=== PATIENT | male | born 1940 | race Caucasian/White ===

== ENCOUNTER 2018-05-06 21:58 | Inpatient (IN) | payer OTHER ==
[~2018-05-06] VITALS: Ht 182.9 cm; Wt 80.0 kg
[2018-05-06 22:54] LABS: Hematocrit 42.4 % (41.0-53.0); Mean Corpuscular Hemoglobin 32.2 pg (28.0-32.0); Mean Corpuscular Hgb Conc. 33.1 g/dL (32.0-36.0); Mean Corpuscular Volume 97.2 fL (80.0-100.0); Platelet Count (auto) 163 10^3/uL (140-450); Red Blood Cells 4.36 10^6/uL (4.5-5.90); Red Cell Distribution Width 14.2 % (11.8-14.3); White Blood Cell 19.7 10^3/uL (4.4-10.8)
[2018-05-06 22:56] LABS: Urine Bacteria FEW /hpf (None Seen); Urine Blood 1+ /uL (Negative); Urine Specific Gravity 1.013 (1.001-1.035); Urine WBC 2 /hpf (0 - 3)
[2018-05-06] MEDS ORDERED: NALOXONE HCL 0.4 MG/ML VIAL ONE (23:04)
[2018-05-06] MEDS ORDERED: FLUMAZENIL 0.1 MG/ML INJ 10ML MDV IV ONE ×2 (23:04→23:15)
[2018-05-06 23:06] LABS: INR 1.04 (0.9-1.15); Partial Thromboplastin Time 26.6 sec (23.78-33.04); Prothrombin Time 11.1 sec (9.27-12.13)
[2018-05-06 23:09] LABS: Alcohol, Urine < 3.0 mg/dL (0-5); Amphetamine Screen, Urine NEGATIVE (NEGATIVE); Barbiturate Scree,Urine NEGATIVE (NEGATIVE); Benzodiazephine Screen, Urine NEGATIVE (NEGATIVE); Cannabinoid Screen, Urine NEGATIVE (NEGATIVE); Cocaine Screen, Urine NEGATIVE (NEGATIVE); Opiate Scree,Urine POSITIVE (NEGATIVE); Phencyclidine Screen, Urine NEGATIVE (NEGATIVE)
[2018-05-06 23:13] LABS: Acetaminophen < 2.0 ug/mL (10-30); Albumin 2.9 g/dL (3.4-5.0); Anion Gap 11 (5-15); Blood Urea Nitrogen 52 mg/dL (7-18); Calcium 8.3 mg/dL (8.5-10.1); Carbon Dioxide 19 mmol/L (21-32); Chloride 107 mmol/L (98-107); Glucose 220 mg/dL (74-106); Potassium 4.4 mmol/L (3.5-5.1); Salicylate < 1.7 mg/dL (2.8-20.0); Sodium 137 mmol/L (136-145)
[2018-05-06 23:15] LABS: Alanine Aminotransferase 81 U/L (16-61); Aspartate Aminotransferase 106 U/L (15-37); BUN/Creatinine Ratio 21.7; Blood Alcohol < 3.0 mg/dL (0-5); GFR African American 34 mL/min; GFR Non-African American 28 mL/min
[2018-05-06] MEDS ORDERED: NALOXONE HCL 0.4 MG/ML VIAL IV ONE (23:15)
[2018-05-06 23:20] LABS: Alkaline Phosphatase 225 U/L (45-117); Bilirubin, Total 0.8 mg/dL (0.2-1.0); Total Protein 7.3 g/dL (6.4-8.2)
[2018-05-06 23:31] LABS: Basophils % (manual) 0 (0.0-2.0); Blast Cells 0; Eosinophils % (manual) 0 (0-7); Myelocytes % 0; Promyelocytes % 0; Reactive Lymphocytes 0
[2018-05-06 23:33] LABS: Band Neutrophils % (manual) 23; Lymphocytes % (manual) 6 (10.0-50.0); Metamyelocytes % 2; Monocytes % (manual) 13 (0-12)
[2018-05-06] MEDS ORDERED: LORazepam 2MG/ML-1ML VIAL IV ONE (23:45)
[2018-05-07] VITALS (57 sets, daily range): BP systolic 80–133; BP diastolic 36–75
[2018-05-07] MEDS ORDERED: LEVOFLOXACIN 750MG 150 ML IV ONE (01:15)
[2018-05-07] MEDS ORDERED: LORazepam 2MG/ML-1ML VIAL ONE (02:09)
[2018-05-07] MEDS ORDERED: ALBUTEROL SULF 2.5 MG/0.5ML(0.5%) NEB SOLN HHN STA (02:10)
[2018-05-07] MEDS ORDERED: CLINDAMYCIN 600MG IV 50 ML IV ONE (02:15)
[2018-05-07] MEDS ORDERED: IPRATROPIUM BROM 0.5 MG/2.5ML INH SOL NEB ONE (02:15)
[2018-05-07 02:26] LABS: Lactic Acid w/Reflex 2.6 mmol/L (0.4-2.0)
[2018-05-07] MEDS ORDERED: LORazepam 2MG/ML-1ML VIAL IV ONE (02:30)
[2018-05-07] MEDS ORDERED: FUROSEMIDE 20 MG/2 ML VIAL IV ONE (03:30)
[2018-05-07] MEDS ORDERED: DILTIAZEM HCL 25 MG/5 ML VIAL IV ONE (04:15)
[2018-05-07] MEDS ORDERED: SUCCINYLCHOLINE CHLORIDE 20 MG/ML 10ML VIAL IV ONE (04:30)
[2018-05-07] MEDS ORDERED: ETOMIDATE (2MG/ML) 20ML VIAL IV ONE (04:30)
[2018-05-07] MEDS ORDERED: SODIUM CHLORIDE 0.9% 1,000 ML IV ONE (04:30)
[2018-05-07] MEDS ORDERED: MIDAZOLAM DRIP 50 mg/50mL 50 ML IV ONE (04:41)
[2018-05-07] MEDS: MIDAZOLAM DRIP 50 mg/50mL 50 ML IV SCH ×5 (04:55→23:04)
[2018-05-07] MEDS ORDERED: fentaNYL Drip 2500mCg/250mlNS 250 ML IV ONE (05:06)
[2018-05-07] MEDS: fentaNYL Drip 2500mCg/250mlNS 250 ML IV SCH (05:11)
[2018-05-07] MEDS ORDERED: NOREPINEPHRINE 8 MG/250ML KIT 250 ML IV ONE (05:54)
[2018-05-07] MEDS ORDERED: NOREPINEPHRINE 8 MG/250ML KIT 250 ML IV SCH ×2 (06:00→06:35)
[2018-05-07] MEDS ORDERED: DEXTROSE (50%) 50ML SYRG IV PRN (06:45)
[2018-05-07] MEDS ORDERED: ACETAMINOPHEN 325 MG TAB PO PRN (06:45)
[2018-05-07] MEDS ORDERED: MORPHINE SULF INJ 2 MG/ML SYRINGE 1ML IV PRN (06:45)
[2018-05-07] MEDS ORDERED: VANCOMYCIN PER PHARMACY 0 MG IV SCH (06:45)
[2018-05-07] MEDS ORDERED: NITROGLYCERIN 0.4 MG SL TAB SL PRN (06:45)
[2018-05-07] MEDS ORDERED: SODIUM CHLORIDE 0.9% 500 ML IV ONE (06:45)
[2018-05-07] MEDS: PIPERACILLIN-TAZOB 2.25GM 50 ML IV SCH ×3 (08:20→20:06)
[2018-05-07] MEDS: SODIUM CHLORIDE 0.9% 1,000 ML IV SCH ×4 (08:21→19:30)
[2018-05-07] MEDS ORDERED: VANCOMYCIN 1GM/250ML 250 ML IV ONE (09:00)
[2018-05-07] MEDS ORDERED: ENOXAPARIN SOD 30 MG/0.3 ML SYRINGE SC SCH (10:00)
[2018-05-07] MEDS: PANTOPRAZOLE 40 MG/10 ML VIAL IV SCH (12:01)
[2018-05-07] MEDS: NOREPINEPHRINE 8 MG/250ML KIT 250 ML IV SCH (12:03)
[2018-05-07] MEDS: ACCU-CHEK COMFORT CURVE STRIP VI SCH ×2 (12:21→17:38)
[2018-05-07] MEDS: InsuLIN REG 1unit/0.01ml Soln (100units/ml) SC SCH ×2 (12:22→17:37)
[2018-05-07] MEDS ORDERED: ENOXAPARIN SOD 80 MG/0.8ML SYRINGE SC ONE (14:45)
[2018-05-07 19:09] LABS: Protein, Urine 91.3 mg/dL (0.0-11.9); Urine Bacteria NONE SEEN /hpf (None Seen); Urine Blood TRACE /uL (Negative); Urine Mucus FEW (None Seen); Urine WBC 2 /hpf (0 - 3)
[2018-05-07] MEDS ORDERED: LISI10TA6 PO (20:42)
[2018-05-07] MEDS ORDERED: OMEP20TA PO (20:42)
[2018-05-07] MEDS ORDERED: HYDR-4683 PO (20:42)
[2018-05-07] MEDS ORDERED: PRAV20TA3 GT (20:42)
[2018-05-07] MEDS ORDERED: AMLO5TAB2 PO (20:42)
[2018-05-07] MEDS ORDERED: INSUINJ2 SC ×2 (20:42)
[2018-05-07] MEDS ORDERED: GABA100C9 PO ×2 (20:42)
[2018-05-07] MEDS ORDERED: DULO60CA PO (20:42)
[2018-05-08] VITALS (81 sets, daily range): BP systolic 96–153; BP diastolic 45–77
[2018-05-08] MEDS: ACCU-CHEK COMFORT CURVE STRIP VI SCH ×5 (00:09→23:42)
[2018-05-08] MEDS: InsuLIN REG 1unit/0.01ml Soln (100units/ml) SC SCH ×5 (00:10→23:42)
[2018-05-08] MEDS: PIPERACILLIN-TAZOB 2.25GM 50 ML IV SCH ×4 (01:57→20:01)
[2018-05-08] MEDS ORDERED: ENOXAPARIN SOD 80 MG/0.8ML SYRINGE SC SCH ×2 (03:00→10:00)
[2018-05-08] MEDS: MIDAZOLAM DRIP 50 mg/50mL 50 ML IV SCH ×2 (03:15→06:50)
[2018-05-08 04:14] LABS: Basophils # (auto) 0 uL; Basophils % (auto) 0.1 % (0.0-2.0); Eosinophils # (auto) 0 uL; Hematocrit 37.5 % (41.0-53.0); Hemoglobin 12.1 g/dL (13.5-17.5); Lymphocytes # (auto) 0.6 uL; Lymphocytes % (auto) 2.6 % (10.0-50.0); Mean Corpuscular Hgb Conc. 32.3 g/dL (32.0-36.0); Mean Corpuscular Volume 99.1 fL (80.0-100.0); Monocytes # (auto) 1.7 uL; Monocytes % (auto) 7.2 % (0.0-12.0); Neutrophils # (auto) 21.9 uL; Neutrophils % (auto) 90.1 % (37.0-80.0); Platelet Count (auto) 179 10^3/uL (140-450); Red Blood Cells 3.78 10^6/uL (4.5-5.90); Red Cell Distribution Width 14.9 % (11.8-14.3); White Blood Cell 24.3 10^3/uL (4.4-10.8)
[2018-05-08 04:22] LABS: BUN/Creatinine Ratio 21.8; Bilirubin, Total 0.5 mg/dL (0.2-1.0); Calcium 8.3 mg/dL (8.5-10.1); Phosphorus 4.5 mg/dL (2.5-4.90); Potassium 4.8 mmol/L (3.5-5.1); Total Protein 6.3 g/dL (6.4-8.2); Uric Acid 7.2 mg/dL (3.5-7.2)
[2018-05-08] MEDS: fentaNYL Drip 2500mCg/250mlNS 250 ML IV SCH (06:40)
[2018-05-08] MEDS: SODIUM CHLORIDE 0.9% 1,000 ML IV SCH (06:51)
[2018-05-08] MEDS ORDERED: CLINDAMYCIN 900MG IV 50 ML IV SCH (09:00)
[2018-05-08] MEDS: ENOXAPARIN SOD 100 MG/1 ML SYRINGE SC SCH (10:00)
[2018-05-08] MEDS: LINEZOLID 600MG/300ML 300 ML IV SCH ×2 (10:02→21:24)
[2018-05-08] MEDS: PANTOPRAZOLE 40 MG/10 ML VIAL IV SCH (10:02)
[2018-05-08] MEDS: NOREPINEPHRINE 8 MG/250ML KIT 250 ML IV SCH (10:03)
[2018-05-09] VITALS (107 sets, daily range): BP systolic 110–164; BP diastolic 50–108
[2018-05-09] MEDS: fentaNYL Drip 2500mCg/250mlNS 250 ML IV SCH (01:01)
[2018-05-09] MEDS: PIPERACILLIN-TAZOB 2.25GM 50 ML IV SCH ×4 (01:47→20:56)
[2018-05-09] MEDS: MIDAZOLAM DRIP 50 mg/50mL 50 ML IV SCH (01:47)
[2018-05-09 03:35] LABS: Hematocrit 33.5 % (41.0-53.0); Hemoglobin 10.8 g/dL (13.5-17.5); Mean Corpuscular Hemoglobin 31.5 pg (28.0-32.0); Mean Corpuscular Hgb Conc. 32.3 g/dL (32.0-36.0); Mean Corpuscular Volume 97.4 fL (80.0-100.0); Platelet Count (auto) 185 10^3/uL (140-450); Red Blood Cells 3.44 10^6/uL (4.5-5.90); Red Cell Distribution Width 14.9 % (11.8-14.3); White Blood Cell 25.2 10^3/uL (4.4-10.8)
[2018-05-09] MEDS: SODIUM CHLORIDE 0.9% 1,000 ML IV SCH (03:43)
[2018-05-09 03:54] LABS: Albumin 1.8 g/dL (3.4-5.0); BUN/Creatinine Ratio 24.6; Calcium 8.3 mg/dL (8.5-10.1); Potassium 4.4 mmol/L (3.5-5.1)
[2018-05-09 03:56] LABS: Bilirubin, Total 0.4 mg/dL (0.2-1.0); Total Protein 5.9 g/dL (6.4-8.2)
[2018-05-09 04:01] LABS: Basophils % (manual) 0 (0.0-2.0); Blast Cells 0; Metamyelocytes % 0; Myelocytes % 0; Promyelocytes % 0; Reactive Lymphocytes 0
[2018-05-09 05:12] LABS: Band Neutrophils % (manual) 15; Eosinophils % (manual) 1 (0-7); Lymphocytes % (manual) 4 (10.0-50.0); Monocytes % (manual) 8 (0-12)
[2018-05-09] MEDS: InsuLIN REG 1unit/0.01ml Soln (100units/ml) SC SCH ×3 (06:00→17:39)
[2018-05-09] MEDS: ACCU-CHEK COMFORT CURVE STRIP VI SCH ×3 (06:00→17:39)
[2018-05-09] MEDS: NOREPINEPHRINE 8 MG/250ML KIT 250 ML IV SCH (10:15)
[2018-05-09] MEDS: PANTOPRAZOLE 40 MG/10 ML VIAL IV SCH (10:34)
[2018-05-09] MEDS: ENOXAPARIN SOD 100 MG/1 ML SYRINGE SC SCH (10:35)
[2018-05-09] MEDS: LINEZOLID 600MG/300ML 300 ML IV SCH ×2 (10:35→22:46)
[2018-05-10] VITALS (107 sets, daily range): BP systolic 117–197; BP diastolic 53–110
[2018-05-10] MEDS: InsuLIN REG 1unit/0.01ml Soln (100units/ml) SC SCH ×4 (00:20→17:18)
[2018-05-10] MEDS: ACCU-CHEK COMFORT CURVE STRIP VI SCH ×4 (00:20→17:18)
[2018-05-10] MEDS: fentaNYL Drip 2500mCg/250mlNS 250 ML IV SCH (01:03)
[2018-05-10] MEDS: PIPERACILLIN-TAZOB 2.25GM 50 ML IV SCH ×4 (02:15→20:15)
[2018-05-10] MEDS: SODIUM CHLORIDE 0.9% 1,000 ML IV SCH (03:21)
[2018-05-10 03:39] LABS: Basophils # (auto) 0.1 uL; Basophils % (auto) 0.3 % (0.0-2.0); Eosinophils # (auto) 0 uL; Hematocrit 34.2 % (41.0-53.0); Lymphocytes % (auto) 4.3 % (10.0-50.0); Mean Corpuscular Hemoglobin 31.6 pg (28.0-32.0); Mean Corpuscular Hgb Conc. 32.2 g/dL (32.0-36.0); Mean Corpuscular Volume 98.1 fL (80.0-100.0); Monocytes # (auto) 0.8 uL; Monocytes % (auto) 3.8 % (0.0-12.0); Neutrophils # (auto) 20.4 uL; Neutrophils % (auto) 91.6 % (37.0-80.0); Platelet Count (auto) 198 10^3/uL (140-450); Red Blood Cells 3.48 10^6/uL (4.5-5.90); Red Cell Distribution Width 14.6 % (11.8-14.3); White Blood Cell 22.3 10^3/uL (4.4-10.8)
[2018-05-10 04:18] LABS: Alanine Aminotransferase 28 U/L (16-61); Albumin 1.8 g/dL (3.4-5.0); Alkaline Phosphatase 154 U/L (45-117); Anion Gap 9 (5-15); Aspartate Aminotransferase 10 U/L (15-37); BUN/Creatinine Ratio 26.9; Bilirubin, Total 0.5 mg/dL (0.2-1.0); Blood Urea Nitrogen 57 mg/dL (7-18); Calcium 8.1 mg/dL (8.5-10.1); Carbon Dioxide 20 mmol/L (21-32); Chloride 116 mmol/L (98-107); GFR African American 39 mL/min; GFR Non-African American 32 mL/min; Glucose 207 mg/dL (74-106); Potassium 4.4 mmol/L (3.5-5.1); Sodium 145 mmol/L (136-145); Total Protein 5.9 g/dL (6.4-8.2)
[2018-05-10] MEDS: MIDAZOLAM DRIP 50 mg/50mL 50 ML IV SCH (04:41)
[2018-05-10] MEDS: NOREPINEPHRINE 8 MG/250ML KIT 250 ML IV SCH (10:15)
[2018-05-10] MEDS: LINEZOLID 600MG/300ML 300 ML IV SCH ×2 (11:20→21:36)
[2018-05-10] MEDS: ENOXAPARIN SOD 100 MG/1 ML SYRINGE SC SCH (11:21)
[2018-05-10] MEDS: PANTOPRAZOLE 40 MG/10 ML VIAL IV SCH (11:21)
[2018-05-10] MEDS ORDERED: Glucerna 1.2 Cal 1Liter BOTTLE GT SCH (16:30)
[2018-05-10] MEDS: Glucerna 1.2 Cal 1Liter BOTTLE GT SCH (21:37)
[2018-05-11] VITALS (106 sets, daily range): BP systolic 108–212; BP diastolic 49–116
[2018-05-11] MEDS: InsuLIN REG 1unit/0.01ml Soln (100units/ml) SC SCH ×4 (00:30→18:07)
[2018-05-11] MEDS: ACCU-CHEK COMFORT CURVE STRIP VI SCH ×4 (00:30→18:07)
[2018-05-11] MEDS ORDERED: METOPROLOL TARTRATE 1MG/1ML-5ML VIAL IV ONE (00:45)
[2018-05-11] MEDS: PIPERACILLIN-TAZOB 2.25GM 50 ML IV SCH ×4 (02:13→20:49)
[2018-05-11] MEDS: fentaNYL Drip 2500mCg/250mlNS 250 ML IV SCH ×2 (02:13→16:11)
[2018-05-11] MEDS: MIDAZOLAM DRIP 50 mg/50mL 50 ML IV SCH (04:41)
[2018-05-11 04:49] LABS: Albumin 1.9 g/dL (3.4-5.0); BUN/Creatinine Ratio 25.5; Calcium 8.3 mg/dL (8.5-10.1)
[2018-05-11 04:51] LABS: Bilirubin, Total 0.7 mg/dL (0.2-1.0); Total Protein 6.4 g/dL (6.4-8.2)
[2018-05-11 05:12] LABS: Hematocrit 36.4 % (41.0-53.0); Hemoglobin 11.9 g/dL (13.5-17.5); Mean Corpuscular Hemoglobin 32.1 pg (28.0-32.0); Mean Corpuscular Hgb Conc. 32.7 g/dL (32.0-36.0); Mean Corpuscular Volume 98.2 fL (80.0-100.0); Platelet Count (auto) 185 10^3/uL (140-450); Red Blood Cells 3.71 10^6/uL (4.5-5.90); Red Cell Distribution Width 14.9 % (11.8-14.3); White Blood Cell 18.9 10^3/uL (4.4-10.8)
[2018-05-11 05:17] LABS: Basophils % (manual) 0 (0.0-2.0); Blast Cells 0; Promyelocytes % 0; Reactive Lymphocytes 0
[2018-05-11] MEDS: SODIUM CHLORIDE 0.9% 1,000 ML IV SCH (06:10)
[2018-05-11] MEDS ORDERED: LABETALOL HCL 5 MG/ML ML 20ML VIAL IV ONE ×3 (06:30→07:45)
[2018-05-11 08:17] LABS: Band Neutrophils % (manual) 1; Eosinophils % (manual) 2 (0-7); Lymphocytes % (manual) 6 (10.0-50.0); Metamyelocytes % 1; Monocytes % (manual) 4 (0-12); Myelocytes % 1
[2018-05-11] MEDS: NOREPINEPHRINE 8 MG/250ML KIT 250 ML IV SCH (10:15)
[2018-05-11] MEDS: cefTRIAXone 1GM/10ml IVPUSH 10 ML IV SCH (11:19)
[2018-05-11] MEDS: PANTOPRAZOLE 40 MG/10 ML VIAL IV SCH (11:20)
[2018-05-11] MEDS: amLODIPine BESYLATE 5 MG TAB PO SCH ×2 (11:20→22:00)
[2018-05-11] MEDS: ENOXAPARIN SOD 100 MG/1 ML SYRINGE SC SCH (11:21)
[2018-05-11] MEDS: LISINOPRIL 10 MG TAB PO SCH (11:21)
[2018-05-11] MEDS: PROPOFOL 100 ML IV SCH ×3 (11:38→21:58)
[2018-05-11] MEDS ORDERED: NITROGLYCERIN 50MG/250ML 250 ML IV ONE (14:06)
[2018-05-11] MEDS: THIAMINE INJ 100 MG, MULTIPLE VITAMIN 10 ML, FOLIC ACID 1 MG, MAGNESIUM SULF SDV 50% 8 ... IV SCH ×5 (15:19)
[2018-05-12] VITALS (105 sets, daily range): BP systolic 102–195; BP diastolic 44–101
[2018-05-12] MEDS: ACCU-CHEK COMFORT CURVE STRIP VI SCH ×4 (00:06→18:08)
[2018-05-12] MEDS: InsuLIN REG 1unit/0.01ml Soln (100units/ml) SC SCH ×4 (00:07→18:08)
[2018-05-12] MEDS: PIPERACILLIN-TAZOB 2.25GM 50 ML IV SCH ×4 (02:45→20:30)
[2018-05-12] MEDS: PROPOFOL 100 ML IV SCH ×6 (02:46→21:08)
[2018-05-12 04:25] LABS: Hematocrit 33.9 % (41.0-53.0); Hemoglobin 11.2 g/dL (13.5-17.5); Mean Corpuscular Hemoglobin 32.4 pg (28.0-32.0); Mean Corpuscular Hgb Conc. 33.1 g/dL (32.0-36.0); Mean Corpuscular Volume 97.8 fL (80.0-100.0); Platelet Count (auto) 164 10^3/uL (140-450); Red Blood Cells 3.47 10^6/uL (4.5-5.90); Red Cell Distribution Width 14.5 % (11.8-14.3); White Blood Cell 13.8 10^3/uL (4.4-10.8)
[2018-05-12 04:31] LABS: Basophils % (manual) 0 (0.0-2.0); Blast Cells 0; Promyelocytes % 0; Reactive Lymphocytes 0
[2018-05-12] MEDS: MIDAZOLAM DRIP 50 mg/50mL 50 ML IV SCH (04:41)
[2018-05-12 04:49] LABS: Albumin 1.8 g/dL (3.4-5.0); BUN/Creatinine Ratio 24.5; Bilirubin, Total 1.1 mg/dL (0.2-1.0); Calcium 8.2 mg/dL (8.5-10.1); Potassium 3.9 mmol/L (3.5-5.1)
[2018-05-12 05:33] LABS: Band Neutrophils % (manual) 3; Eosinophils % (manual) 1 (0-7); Lymphocytes % (manual) 11 (10.0-50.0); Metamyelocytes % 2; Monocytes % (manual) 4 (0-12); Myelocytes % 1
[2018-05-12] MEDS: LABETALOL HCL 5 MG/ML ML 20ML VIAL IV PRN ×2 (07:05→23:30)
[2018-05-12] MEDS: DEXMEDETOMIDINE HCL 400 MCG in D5W 5% 96 ML IV SCH (07:55)
[2018-05-12] MEDS: fentaNYL Drip 2500mCg/250mlNS 250 ML IV SCH (07:58)
[2018-05-12] MEDS: PANTOPRAZOLE 40 MG/10 ML VIAL IV SCH (09:30)
[2018-05-12] MEDS: cefTRIAXone 1GM/10ml IVPUSH 10 ML IV SCH (09:30)
[2018-05-12] MEDS: amLODIPine BESYLATE 5 MG TAB PO SCH ×2 (09:34→22:00)
[2018-05-12] MEDS: LISINOPRIL 10 MG TAB PO SCH (09:34)
[2018-05-12] MEDS: ENOXAPARIN SOD 100 MG/1 ML SYRINGE SC SCH ×2 (10:00→22:00)
[2018-05-12] MEDS ORDERED: ENOXAPARIN SOD 100 MG/1 ML SYRINGE SC SCH (10:00)
[2018-05-12] MEDS: NOREPINEPHRINE 8 MG/250ML KIT 250 ML IV SCH (10:15)
[2018-05-12] MEDS: THIAMINE INJ 100 MG, MULTIPLE VITAMIN 10 ML, FOLIC ACID 1 MG, MAGNESIUM SULF SDV 50% 8 ... IV SCH ×5 (14:29)
[2018-05-12] MEDS ORDERED: FUROSEMIDE 40 MG/4 ML VIAL IV ONE (16:30)
[2018-05-13] VITALS (105 sets, daily range): BP systolic 91–195; BP diastolic 49–125
[2018-05-13] MEDS: PIPERACILLIN-TAZOB 2.25GM 50 ML IV SCH ×4 (02:00→19:55)
[2018-05-13] MEDS: LABETALOL HCL 5 MG/ML ML 20ML VIAL IV PRN ×6 (03:50→19:14)
[2018-05-13 03:54] LABS: Hematocrit 37.3 % (41.0-53.0); Hemoglobin 12.1 g/dL (13.5-17.5); Mean Corpuscular Hemoglobin 31.6 pg (28.0-32.0); Mean Corpuscular Hgb Conc. 32.3 g/dL (32.0-36.0); Mean Corpuscular Volume 97.8 fL (80.0-100.0); Platelet Count (auto) 185 10^3/uL (140-450); Red Blood Cells 3.82 10^6/uL (4.5-5.90); Red Cell Distribution Width 14.4 % (11.8-14.3); White Blood Cell 12.8 10^3/uL (4.4-10.8)
[2018-05-13 04:19] LABS: BUN/Creatinine Ratio 23.3; Bilirubin, Total 0.9 mg/dL (0.2-1.0); Calcium 8.3 mg/dL (8.5-10.1); Potassium 4.1 mmol/L (3.5-5.1); Total Protein 6.7 g/dL (6.4-8.2)
[2018-05-13 04:21] LABS: Basophils % (manual) 0 (0.0-2.0); Blast Cells 0; Promyelocytes % 0; Reactive Lymphocytes 0
[2018-05-13] MEDS: MIDAZOLAM DRIP 50 mg/50mL 50 ML IV SCH (04:41)
[2018-05-13 04:46] LABS: Band Neutrophils % (manual) 3; Eosinophils % (manual) 1 (0-7); Lymphocytes % (manual) 12 (10.0-50.0); Metamyelocytes % 2; Monocytes % (manual) 5 (0-12); Myelocytes % 2
[2018-05-13] MEDS: InsuLIN REG 1unit/0.01ml Soln (100units/ml) SC SCH ×5 (06:30→23:55)
[2018-05-13] MEDS: ACCU-CHEK COMFORT CURVE STRIP VI SCH ×5 (06:30→23:55)
[2018-05-13] MEDS: DEXMEDETOMIDINE HCL 400 MCG in D5W 5% 96 ML IV SCH ×2 (07:00→19:56)
[2018-05-13] MEDS: cefTRIAXone 1GM/10ml IVPUSH 10 ML IV SCH (08:49)
[2018-05-13] MEDS: ENOXAPARIN SOD 100 MG/1 ML SYRINGE SC SCH ×2 (09:46→21:44)
[2018-05-13] MEDS: PANTOPRAZOLE 40 MG/10 ML VIAL IV SCH (09:49)
[2018-05-13] MEDS: LISINOPRIL 10 MG TAB PO SCH (09:50)
[2018-05-13] MEDS: amLODIPine BESYLATE 5 MG TAB PO SCH ×2 (09:50→21:44)
[2018-05-13] MEDS: NOREPINEPHRINE 8 MG/250ML KIT 250 ML IV SCH (10:15)
[2018-05-13] MEDS ORDERED: MINOXIDIL 2.5 MG TAB PO ONE (13:45)
[2018-05-13] MEDS: THIAMINE INJ 100 MG, MULTIPLE VITAMIN 10 ML, FOLIC ACID 1 MG, MAGNESIUM SULF SDV 50% 8 ... IV SCH ×5 (13:51)
[2018-05-13] MEDS ORDERED: HYDROcodone-ACET 7.5/325MG TAB PO PRN (14:00)
[2018-05-13] MEDS: fentaNYL Drip 2500mCg/250mlNS 250 ML IV SCH (18:28)
[2018-05-13] MEDS: PROPOFOL 100 ML IV SCH (20:53)
[2018-05-13] MEDS: MINOXIDIL 2.5 MG TAB PO SCH (21:45)
[2018-05-14] VITALS (103 sets, daily range): BP systolic 82–183; BP diastolic 42–111
[2018-05-14] MEDS: PIPERACILLIN-TAZOB 2.25GM 50 ML IV SCH ×2 (01:29→08:19)
[2018-05-14 03:48] LABS: Hematocrit 38.2 % (41.0-53.0); Hemoglobin 12.6 g/dL (13.5-17.5); Mean Corpuscular Hemoglobin 31.5 pg (28.0-32.0); Mean Corpuscular Hgb Conc. 32.9 g/dL (32.0-36.0); Mean Corpuscular Volume 95.8 fL (80.0-100.0); Platelet Count (auto) 200 10^3/uL (140-450); Red Blood Cells 3.99 10^6/uL (4.5-5.90); Red Cell Distribution Width 14.1 % (11.8-14.3); White Blood Cell 12.3 10^3/uL (4.4-10.8)
[2018-05-14 04:08] LABS: Potassium 3.6 mmol/L (3.5-5.1)
[2018-05-14 04:09] LABS: Basophils % (manual) 0 (0.0-2.0); Blast Cells 0; Promyelocytes % 0; Reactive Lymphocytes 0
[2018-05-14 04:16] LABS: Albumin 2.1 g/dL (3.4-5.0); BUN/Creatinine Ratio 21.9; Bilirubin, Total 0.7 mg/dL (0.2-1.0); Calcium 8.6 mg/dL (8.5-10.1); Total Protein 6.7 g/dL (6.4-8.2)
[2018-05-14 04:28] LABS: Band Neutrophils % (manual) 4; Eosinophils % (manual) 2 (0-7); Lymphocytes % (manual) 11 (10.0-50.0); Metamyelocytes % 6; Monocytes % (manual) 6 (0-12); Myelocytes % 2
[2018-05-14] MEDS: DEXMEDETOMIDINE HCL 400 MCG in D5W 5% 96 ML IV SCH (05:05)
[2018-05-14] MEDS: PROPOFOL 100 ML IV SCH ×2 (05:05→20:44)
[2018-05-14] MEDS: InsuLIN REG 1unit/0.01ml Soln (100units/ml) SC SCH ×3 (06:15→18:30)
[2018-05-14] MEDS: ACCU-CHEK COMFORT CURVE STRIP VI SCH ×3 (06:15→18:20)
[2018-05-14] MEDS: MIDAZOLAM DRIP 50 mg/50mL 50 ML IV SCH (07:46)
[2018-05-14] MEDS: LABETALOL HCL 5 MG/ML ML 20ML VIAL IV PRN ×3 (08:48→13:22)
[2018-05-14] MEDS: cefTRIAXone 1GM/10ml IVPUSH 10 ML IV SCH (09:44)
[2018-05-14] MEDS: MINOXIDIL 2.5 MG TAB PO SCH ×2 (09:44→21:50)
[2018-05-14] MEDS: amLODIPine BESYLATE 5 MG TAB PO SCH ×2 (09:45→21:50)
[2018-05-14] MEDS: PANTOPRAZOLE 40 MG/10 ML VIAL IV SCH (09:45)
[2018-05-14] MEDS: LISINOPRIL 10 MG TAB PO SCH (09:45)
[2018-05-14] MEDS: ENOXAPARIN SOD 80 MG/0.8ML SYRINGE SC SCH ×2 (09:46→21:50)
[2018-05-14] MEDS: NOREPINEPHRINE 8 MG/250ML KIT 250 ML IV SCH (09:59)
[2018-05-14] MEDS: THIAMINE INJ 100 MG, MULTIPLE VITAMIN 10 ML, FOLIC ACID 1 MG, MAGNESIUM SULF SDV 50% 8 ... IV SCH ×5 (14:00)
[2018-05-14] MEDS: ACETAMINOPHEN/CODEINE#3 (300/30mg) TAB PO SCH (19:31)
[2018-05-15] VITALS (90 sets, daily range): BP systolic 81–187; BP diastolic 43–116
[2018-05-15] MEDS: InsuLIN REG 1unit/0.01ml Soln (100units/ml) SC SCH ×4 (00:07→19:08)
[2018-05-15] MEDS: ACCU-CHEK COMFORT CURVE STRIP VI SCH ×4 (00:07→19:09)
[2018-05-15] MEDS: ACETAMINOPHEN/CODEINE#3 (300/30mg) TAB PO SCH ×4 (00:07→18:00)
[2018-05-15] MEDS: PROPOFOL 100 ML IV SCH (02:16)
[2018-05-15 04:01] LABS: Hematocrit 39.1 % (41.0-53.0); Hemoglobin 12.8 g/dL (13.5-17.5); Mean Corpuscular Hemoglobin 31.7 pg (28.0-32.0); Mean Corpuscular Hgb Conc. 32.7 g/dL (32.0-36.0); Mean Corpuscular Volume 96.9 fL (80.0-100.0); Platelet Count (auto) 232 10^3/uL (140-450); Red Blood Cells 4.03 10^6/uL (4.5-5.90); Red Cell Distribution Width 14.3 % (11.8-14.3); White Blood Cell 14.6 10^3/uL (4.4-10.8)
[2018-05-15 04:14] LABS: Albumin 2.1 g/dL (3.4-5.0); BUN/Creatinine Ratio 20.5; Calcium 8.2 mg/dL (8.5-10.1); Potassium 3.8 mmol/L (3.5-5.1)
[2018-05-15 04:15] LABS: Basophils % (manual) 0 (0.0-2.0); Blast Cells 0; Myelocytes % 0; Promyelocytes % 0; Reactive Lymphocytes 0
[2018-05-15 04:17] LABS: Bilirubin, Total 0.6 mg/dL (0.2-1.0); Total Protein 6.6 g/dL (6.4-8.2)
[2018-05-15 04:41] LABS: Band Neutrophils % (manual) 3; Eosinophils % (manual) 2 (0-7); Lymphocytes % (manual) 11 (10.0-50.0); Metamyelocytes % 1; Monocytes % (manual) 7 (0-12)
[2018-05-15] MEDS: MIDAZOLAM DRIP 50 mg/50mL 50 ML IV SCH (04:41)
[2018-05-15] MEDS: fentaNYL Drip 2500mCg/250mlNS 250 ML IV SCH (04:59)
[2018-05-15] MEDS: DEXMEDETOMIDINE HCL 400 MCG in D5W 5% 96 ML IV SCH (07:43)
[2018-05-15] MEDS: cefTRIAXone 1GM/10ml IVPUSH 10 ML IV SCH (08:40)
[2018-05-15] MEDS: LISINOPRIL 10 MG TAB PO SCH (10:00)
[2018-05-15] MEDS: amLODIPine BESYLATE 5 MG TAB PO SCH ×2 (10:00→22:00)
[2018-05-15] MEDS: MINOXIDIL 2.5 MG TAB PO SCH ×2 (10:00→22:00)
[2018-05-15] MEDS: PANTOPRAZOLE 40 MG/10 ML VIAL IV SCH (10:01)
[2018-05-15] MEDS: ENOXAPARIN SOD 80 MG/0.8ML SYRINGE SC SCH ×2 (10:01→22:00)
[2018-05-15] MEDS: NOREPINEPHRINE 8 MG/250ML KIT 250 ML IV SCH (10:15)
[2018-05-15] MEDS: LABETALOL HCL 5 MG/ML ML 20ML VIAL IV PRN ×5 (11:08→22:59)
[2018-05-15] MEDS: THIAMINE INJ 100 MG, MULTIPLE VITAMIN 10 ML, FOLIC ACID 1 MG, MAGNESIUM SULF SDV 50% 8 ... IV SCH ×5 (13:02)
[2018-05-15] MEDS ORDERED: POTASSIUM CHL 20MEQ/100ML 100 ML IV ONE (14:30)
[2018-05-16] VITALS (28 sets, daily range): BP systolic 109–156; BP diastolic 51–99
[2018-05-16 04:08] LABS: Hematocrit 41.4 % (41.0-53.0); Hemoglobin 13.6 g/dL (13.5-17.5); Mean Corpuscular Hemoglobin 31.4 pg (28.0-32.0); Mean Corpuscular Hgb Conc. 32.8 g/dL (32.0-36.0); Mean Corpuscular Volume 95.7 fL (80.0-100.0); Platelet Count (auto) 294 10^3/uL (140-450); Red Blood Cells 4.33 10^6/uL (4.5-5.90); Red Cell Distribution Width 14.1 % (11.8-14.3); White Blood Cell 13.9 10^3/uL (4.4-10.8)
[2018-05-16 04:29] LABS: Albumin 2.4 g/dL (3.4-5.0); BUN/Creatinine Ratio 22.4; Bilirubin, Total 0.8 mg/dL (0.2-1.0); Calcium 8.6 mg/dL (8.5-10.1); Potassium 3.3 mmol/L (3.5-5.1); Total Protein 7.1 g/dL (6.4-8.2)
[2018-05-16 04:30] LABS: Basophils % (manual) 0 (0.0-2.0); Blast Cells 0; Promyelocytes % 0; Reactive Lymphocytes 0
[2018-05-16] MEDS: MIDAZOLAM DRIP 50 mg/50mL 50 ML IV SCH (04:41)
[2018-05-16] MEDS: fentaNYL Drip 2500mCg/250mlNS 250 ML IV SCH (04:59)
[2018-05-16 05:06] LABS: Band Neutrophils % (manual) 2; Eosinophils % (manual) 1 (0-7); Lymphocytes % (manual) 8 (10.0-50.0); Metamyelocytes % 2; Monocytes % (manual) 6 (0-12); Myelocytes % 1
[2018-05-16] MEDS: InsuLIN REG 1unit/0.01ml Soln (100units/ml) SC SCH ×4 (06:00→18:28)
[2018-05-16] MEDS: ACETAMINOPHEN/CODEINE#3 (300/30mg) TAB PO SCH ×4 (06:00→18:00)
[2018-05-16] MEDS: ACCU-CHEK COMFORT CURVE STRIP VI SCH ×4 (06:00→18:27)
[2018-05-16] MEDS: DEXMEDETOMIDINE HCL 400 MCG in D5W 5% 96 ML IV SCH (07:39)
[2018-05-16] MEDS: cefTRIAXone 1GM/10ml IVPUSH 10 ML IV SCH (09:10)
[2018-05-16] MEDS: PROPOFOL 100 ML IV SCH (09:22)
[2018-05-16] MEDS: MINOXIDIL 2.5 MG TAB PO SCH (10:00)
[2018-05-16] MEDS: amLODIPine BESYLATE 5 MG TAB PO SCH (10:00)
[2018-05-16] MEDS: LISINOPRIL 10 MG TAB PO SCH (10:00)
[2018-05-16] MEDS: NOREPINEPHRINE 8 MG/250ML KIT 250 ML IV SCH (10:15)
[2018-05-16] MEDS: PANTOPRAZOLE 40 MG/10 ML VIAL IV SCH (10:39)
[2018-05-16] MEDS: ENOXAPARIN SOD 80 MG/0.8ML SYRINGE SC SCH ×2 (10:41→22:53)
[2018-05-16] MEDS: MORPHINE SULF INJ 2 MG/ML SYRINGE 1ML IV PRN (10:45)
[2018-05-16] MEDS: THIAMINE INJ 100 MG, MULTIPLE VITAMIN 10 ML, FOLIC ACID 1 MG, MAGNESIUM SULF SDV 50% 8 ... IV SCH ×5 (12:00)
[2018-05-16] MEDS ORDERED: POTASSIUM CHL 20MEQ/100ML 100 ML IV ONE (14:15)
[2018-05-16] MEDS: MINOXIDIL 2.5 MG TAB NG SCH (22:53)
[2018-05-16] MEDS: amLODIPine BESYLATE 5 MG TAB NG SCH (22:54)
[2018-05-17] VITALS (22 sets, daily range): BP systolic 74–153; BP diastolic 52–92
[2018-05-17] MEDS: ACCU-CHEK COMFORT CURVE STRIP VI SCH ×4 (00:12→17:59)
[2018-05-17] MEDS: ACETAMINOPHEN/CODEINE#3 (300/30mg) TAB NG SCH ×3 (00:12→12:00)
[2018-05-17] MEDS: InsuLIN REG 1unit/0.01ml Soln (100units/ml) SC SCH ×4 (00:13→17:59)
[2018-05-17] MEDS: MIDAZOLAM DRIP 50 mg/50mL 50 ML IV SCH ×2 (04:41→21:11)
[2018-05-17] MEDS: fentaNYL Drip 2500mCg/250mlNS 250 ML IV SCH (04:59)
[2018-05-17 07:15] LABS: Basophils # (auto) 0 uL; Basophils % (auto) 0.2 % (0.0-2.0); Eosinophils # (auto) 0 uL; Eosinophils % (auto) 0.2 % (0.0-7.0); Hematocrit 47.1 % (41.0-53.0); Hemoglobin 15.5 g/dL (13.5-17.5); Lymphocytes # (auto) 1.2 uL; Lymphocytes % (auto) 7.1 % (10.0-50.0); Mean Corpuscular Hemoglobin 31.9 pg (28.0-32.0); Mean Corpuscular Hgb Conc. 32.9 g/dL (32.0-36.0); Monocytes # (auto) 1.2 uL; Monocytes % (auto) 7.3 % (0.0-12.0); Neutrophils # (auto) 13.9 uL; Neutrophils % (auto) 85.2 % (37.0-80.0); Platelet Count (auto) 401 10^3/uL (140-450); Red Blood Cells 4.86 10^6/uL (4.5-5.90); Red Cell Distribution Width 14.6 % (11.8-14.3); White Blood Cell 16.3 10^3/uL (4.4-10.8)
[2018-05-17 07:33] LABS: Albumin 2.6 g/dL (3.4-5.0); BUN/Creatinine Ratio 22.5; Calcium 8.6 mg/dL (8.5-10.1); Potassium 3.8 mmol/L (3.5-5.1)
[2018-05-17 07:36] LABS: Total Protein 7.5 g/dL (6.4-8.2)
[2018-05-17] MEDS: cefTRIAXone 1GM/10ml IVPUSH 10 ML IV SCH (11:11)
[2018-05-17] MEDS: PANTOPRAZOLE 40 MG/10 ML VIAL IV SCH (11:11)
[2018-05-17] MEDS: amLODIPine BESYLATE 5 MG TAB NG SCH (11:12)
[2018-05-17] MEDS: MINOXIDIL 2.5 MG TAB NG SCH (11:12)
[2018-05-17] MEDS: ENOXAPARIN SOD 80 MG/0.8ML SYRINGE SC SCH ×2 (11:13→22:58)
[2018-05-17] MEDS: LISINOPRIL 10 MG TAB PO SCH (11:13)
[2018-05-17] MEDS: THIAMINE INJ 100 MG, MULTIPLE VITAMIN 10 ML, FOLIC ACID 1 MG, MAGNESIUM SULF SDV 50% 8 ... IV SCH ×5 (12:00)
[2018-05-17] MEDS: MORPHINE SULF INJ 2 MG/ML SYRINGE 1ML IV PRN (12:25)
[2018-05-17] MEDS: ACETAMINOPHEN 325 MG TAB PO PRN (12:25)
[2018-05-17] MEDS: ONDANSETRON HCL 4 MG/2 ML VIAL IV PRN (12:25)
[2018-05-17] MEDS ORDERED: SUCCINYLCHOLINE CHLORIDE 20 MG/ML 10ML VIAL IV ONE (19:56)
[2018-05-17] MEDS ORDERED: ETOMIDATE (2MG/ML) 20ML VIAL IV ONE (19:56)
[2018-05-17] MEDS: PROPOFOL 100 ML IV SCH (20:25)
[2018-05-17] MEDS ORDERED: PROPOFOL 100 ML IV ONE (20:28)
[2018-05-17] MEDS ORDERED: MIDAZOLAM DRIP 50 mg/50mL 50 ML IV ONE (21:24)
[2018-05-17] MEDS ORDERED: NOREPINEPHRINE 8 MG/250ML KIT 250 ML IV ONE (22:08)
[2018-05-17] MEDS: NOREPINEPHRINE 8 MG/250ML KIT 250 ML IV SCH (22:23)
[2018-05-17] MEDS ORDERED: PIPERACILLIN-TAZOB 2.25GM 50 ML IV ONE (23:15)
[2018-05-17 23:37] LABS: Eosinophils # (auto) 0 uL
[2018-05-17 23:39] LABS: Basophils # (auto) 0.2 uL; Basophils % (auto) 1.1 % (0.0-2.0); Hematocrit 43.1 % (41.0-53.0); Lymphocytes # (auto) 1.3 uL; Lymphocytes % (auto) 5.7 % (10.0-50.0); Mean Corpuscular Hemoglobin 31.8 pg (28.0-32.0); Mean Corpuscular Hgb Conc. 32.5 g/dL (32.0-36.0); Mean Corpuscular Volume 98.1 fL (80.0-100.0); Monocytes % (auto) 8.8 % (0.0-12.0); Neutrophils # (auto) 19.2 uL; Neutrophils % (auto) 84.4 % (37.0-80.0); Platelet Count (auto) 542 10^3/uL (140-450); Red Blood Cells 4.39 10^6/uL (4.5-5.90); Red Cell Distribution Width 14.9 % (11.8-14.3); White Blood Cell 22.7 10^3/uL (4.4-10.8)
[2018-05-17] MEDS: FLUCONAZOLE 200MG/100ML 100 ML IV SCH (23:51)
[2018-05-18] VITALS (93 sets, daily range): BP systolic 88–141; BP diastolic 42–88
[2018-05-18] MEDS ORDERED: LINEZOLID 600MG/300ML 300 ML IV ONE
[2018-05-18 00:01] LABS: Amylase 133 U/L (25-115); Lipase 840 U/L (73-393)
[2018-05-18] MEDS: InsuLIN REG 1unit/0.01ml Soln (100units/ml) SC SCH ×5 (00:12→22:11)
[2018-05-18] MEDS: ACCU-CHEK COMFORT CURVE STRIP VI SCH ×4 (00:12→22:11)
[2018-05-18] MEDS: FLUCONAZOLE 200MG/100ML 100 ML IV SCH ×3 (00:57→11:45)
[2018-05-18 04:17] LABS: Basophils # (auto) 0.1 uL; Basophils % (auto) 0.4 % (0.0-2.0); Eosinophils # (auto) 0 uL; Eosinophils % (auto) 0.1 % (0.0-7.0); Hematocrit 44.5 % (41.0-53.0); Hemoglobin 13.9 g/dL (13.5-17.5); Lymphocytes # (auto) 1.8 uL; Lymphocytes % (auto) 7.2 % (10.0-50.0); Mean Corpuscular Hemoglobin 31.9 pg (28.0-32.0); Mean Corpuscular Hgb Conc. 31.3 g/dL (32.0-36.0); Mean Corpuscular Volume 101.7 fL (80.0-100.0); Monocytes # (auto) 2.8 uL; Monocytes % (auto) 11.1 % (0.0-12.0); Neutrophils # (auto) 20.4 uL; Neutrophils % (auto) 81.2 % (37.0-80.0); Platelet Count (auto) 468 10^3/uL (140-450); Red Blood Cells 4.38 10^6/uL (4.5-5.90); Red Cell Distribution Width 15.5 % (11.8-14.3)
[2018-05-18 04:30] LABS: Chloride 122 mmol/L (98-107); Potassium 4.6 mmol/L (3.5-5.1); Sodium 151 mmol/L (136-145)
[2018-05-18 04:39] LABS: Alanine Aminotransferase 66 U/L (16-61); Albumin 2.2 g/dL (3.4-5.0); Alkaline Phosphatase 244 U/L (45-117); Anion Gap 11 (5-15); Aspartate Aminotransferase 59 U/L (15-37); BUN/Creatinine Ratio 18.7; Bilirubin, Total 0.6 mg/dL (0.2-1.0); Blood Urea Nitrogen 59 mg/dL (7-18); Carbon Dioxide 18 mmol/L (21-32); GFR African American 25 mL/min; GFR Non-African American 21 mL/min; Glucose 234 mg/dL (74-106); Total Protein 6.7 g/dL (6.4-8.2)
[2018-05-18] MEDS: PIPERACILLIN-TAZOB 2.25GM 50 ML IV SCH ×3 (06:06→17:15)
[2018-05-18] MEDS: MIDAZOLAM DRIP 50 mg/50mL 50 ML IV SCH ×2 (06:45→20:32)
[2018-05-18] MEDS ORDERED: SOD CHL 0.45% 1,000 ML IV SCH (07:45)
[2018-05-18] MEDS: PROPOFOL 100 ML IV SCH (09:18)
[2018-05-18] MEDS: LINEZOLID 600MG/300ML 300 ML IV SCH ×2 (10:15→13:01)
[2018-05-18] MEDS: PANTOPRAZOLE 40 MG/10 ML VIAL IV SCH (10:15)
[2018-05-18 11:57] LABS: INR 1.11 (0.9-1.15); Prothrombin Time 11.8 sec (9.27-12.13)
[2018-05-18 12:37] LABS: Creatinine, Urine 150 mg/dL (30.0-125.0); Sodium Urine 35 mmol/L (40-220)
[2018-05-18] MEDS ORDERED: LIDOCAINE 1% (LOCAL ANESTH.) PF 5ml SDV ID ONE (13:45)
[2018-05-18] MEDS: ENOXAPARIN SOD 80 MG/0.8ML SYRINGE SC SCH (14:46)
[2018-05-18] MEDS: SOD CHL 0.45% 1,000 ML IV SCH ×2 (14:46→20:31)
[2018-05-18] MEDS: THIAMINE INJ 100 MG, MULTIPLE VITAMIN 10 ML, FOLIC ACID 1 MG, MAGNESIUM SULF SDV 50% 8 ... IV SCH ×5 (16:29)
[2018-05-18] MEDS: NOREPINEPHRINE 8 MG/250ML KIT 250 ML IV SCH (17:16)
[2018-05-18] MEDS: SODIUM CHLOR 0.9% PF (SALINE LOCK) 10ML VIAL/SYR IV SCH (22:00)
[2018-05-19] VITALS (103 sets, daily range): BP systolic 86–171; BP diastolic 43–90
[2018-05-19] MEDS: PROPOFOL 100 ML IV SCH (01:00)
[2018-05-19 04:58] LABS: Basophils # (auto) 0.1 uL; Basophils % (auto) 0.7 % (0.0-2.0); Eosinophils # (auto) 0.1 uL; Eosinophils % (auto) 0.7 % (0.0-7.0); Hemoglobin 11.6 g/dL (13.5-17.5); Lymphocytes # (auto) 1.3 uL; Lymphocytes % (auto) 6.5 % (10.0-50.0); Mean Corpuscular Hgb Conc. 31.3 g/dL (32.0-36.0); Mean Corpuscular Volume 99.2 fL (80.0-100.0); Monocytes # (auto) 1.9 uL; Monocytes % (auto) 9.9 % (0.0-12.0); Neutrophils # (auto) 15.9 uL; Neutrophils % (auto) 82.2 % (37.0-80.0); Platelet Count (auto) 383 10^3/uL (140-450); Red Blood Cells 3.73 10^6/uL (4.5-5.90); Red Cell Distribution Width 15.6 % (11.8-14.3); White Blood Cell 19.3 10^3/uL (4.4-10.8)
[2018-05-19] MEDS: SOD CHL 0.45% 1,000 ML IV SCH ×3 (05:00→20:15)
[2018-05-19 05:28] LABS: Albumin 2.1 g/dL (3.4-5.0); BUN/Creatinine Ratio 20.3; Bilirubin, Total 0.6 mg/dL (0.2-1.0); Calcium 7.7 mg/dL (8.5-10.1); Potassium 4.4 mmol/L (3.5-5.1); Total Protein 5.9 g/dL (6.4-8.2)
[2018-05-19] MEDS: PIPERACILLIN-TAZOB 2.25GM 50 ML IV SCH ×5 (06:00→23:52)
[2018-05-19] MEDS: ACCU-CHEK COMFORT CURVE STRIP VI SCH ×4 (06:43→22:08)
[2018-05-19] MEDS: InsuLIN REG 1unit/0.01ml Soln (100units/ml) SC SCH ×4 (06:44→22:08)
[2018-05-19] MEDS: PANTOPRAZOLE 40 MG/10 ML VIAL IV SCH (09:59)
[2018-05-19] MEDS: LINEZOLID 600MG/300ML 300 ML IV SCH ×2 (09:59→22:08)
[2018-05-19] MEDS: SODIUM CHLOR 0.9% PF (SALINE LOCK) 10ML VIAL/SYR IV SCH ×2 (10:00→22:08)
[2018-05-19] MEDS: ENOXAPARIN SOD 80 MG/0.8ML SYRINGE SC SCH (10:00)
[2018-05-19] MEDS: Glucerna 1.2 Cal 1Liter BOTTLE GT SCH (10:00)
[2018-05-19] MEDS: MIDAZOLAM DRIP 50 mg/50mL 50 ML IV SCH (10:43)
[2018-05-19] MEDS: THIAMINE INJ 100 MG, MULTIPLE VITAMIN 10 ML, FOLIC ACID 1 MG, MAGNESIUM SULF SDV 50% 8 ... IV SCH ×5 (14:30)
[2018-05-19] MEDS: NOREPINEPHRINE 8 MG/250ML KIT 250 ML IV SCH (16:00)
[2018-05-19] MEDS: INSULIN LANTUS (GLARGINE) 1 /0.01ml (100units/ml) SC SCH (22:08)
[2018-05-20] VITALS (103 sets, daily range): BP systolic 92–168; BP diastolic 57–94
[2018-05-20 03:56] LABS: Basophils # (auto) 0.1 uL; Basophils % (auto) 0.6 % (0.0-2.0); Eosinophils # (auto) 0.2 uL; Eosinophils % (auto) 1.5 % (0.0-7.0); Hematocrit 34.4 % (41.0-53.0); Lymphocytes # (auto) 0.8 uL; Lymphocytes % (auto) 5.3 % (10.0-50.0); Mean Corpuscular Hemoglobin 31.5 pg (28.0-32.0); Mean Corpuscular Hgb Conc. 32.1 g/dL (32.0-36.0); Mean Corpuscular Volume 98.1 fL (80.0-100.0); Monocytes # (auto) 1.6 uL; Neutrophils # (auto) 11.9 uL; Neutrophils % (auto) 81.6 % (37.0-80.0); Platelet Count (auto) 342 10^3/uL (140-450); Red Blood Cells 3.51 10^6/uL (4.5-5.90); Red Cell Distribution Width 15.1 % (11.8-14.3); White Blood Cell 14.6 10^3/uL (4.4-10.8)
[2018-05-20 04:02] LABS: Calcium 7.6 mg/dL (8.5-10.1); Potassium 4.1 mmol/L (3.5-5.1)
[2018-05-20 04:05] LABS: BUN/Creatinine Ratio 20.8
[2018-05-20 04:07] LABS: Bilirubin, Total 0.4 mg/dL (0.2-1.0); Total Protein 5.6 g/dL (6.4-8.2)
[2018-05-20] MEDS: SOD CHL 0.45% 1,000 ML IV SCH ×2 (04:30→22:09)
[2018-05-20] MEDS ORDERED: LORazepam 2MG/ML-1ML VIAL IV PRN (05:00)
[2018-05-20] MEDS: PIPERACILLIN-TAZOB 2.25GM 50 ML IV SCH ×3 (06:22→17:43)
[2018-05-20] MEDS: ACCU-CHEK COMFORT CURVE STRIP VI SCH ×4 (06:44→22:09)
[2018-05-20] MEDS: InsuLIN REG 1unit/0.01ml Soln (100units/ml) SC SCH ×4 (06:44→22:00)
[2018-05-20] MEDS: SODIUM CHLOR 0.9% PF (SALINE LOCK) 10ML VIAL/SYR IV SCH ×2 (10:00→22:09)
[2018-05-20] MEDS ORDERED: FUROSEMIDE 20 MG/2 ML VIAL IV ONE (10:45)
[2018-05-20] MEDS ORDERED: FUROSEMIDE 20 MG/2 ML VIAL ONE (10:49)
[2018-05-20] MEDS: PANTOPRAZOLE 40 MG/10 ML VIAL IV SCH (10:57)
[2018-05-20] MEDS: LINEZOLID 600MG/300ML 300 ML IV SCH ×2 (10:58→22:09)
[2018-05-20] MEDS: ENOXAPARIN SOD 80 MG/0.8ML SYRINGE SC SCH (10:58)
[2018-05-20] MEDS: fentaNYL Drip 2500mCg/250mlNS 250 ML IV SCH (15:01)
[2018-05-20] MEDS: HYDROcodone-ACET 10/325MG TAB PO SCH (17:44)
[2018-05-20] MEDS ORDERED: HYDROcodone-ACET 10/325MG TAB PO SCH (18:00)
[2018-05-20] MEDS: PROPOFOL 100 ML IV SCH (20:25)
[2018-05-20] MEDS: MIDAZOLAM DRIP 50 mg/50mL 50 ML IV SCH (21:11)
[2018-05-20] MEDS: INSULIN LANTUS (GLARGINE) 1 /0.01ml (100units/ml) SC SCH (22:00)
[2018-05-20] MEDS: NOREPINEPHRINE 8 MG/250ML KIT 250 ML IV SCH (22:05)
[2018-05-21] VITALS (78 sets, daily range): BP systolic 108–187; BP diastolic 54–111
[2018-05-21] MEDS: PIPERACILLIN-TAZOB 2.25GM 50 ML IV SCH ×4 (00:04→17:47)
[2018-05-21] MEDS: HYDROcodone-ACET 10/325MG TAB PO SCH ×4 (00:04→17:49)
[2018-05-21 03:43] LABS: Hematocrit 30.8 % (41.0-53.0); Mean Corpuscular Hemoglobin 31.7 pg (28.0-32.0); Mean Corpuscular Hgb Conc. 32.4 g/dL (32.0-36.0); Mean Corpuscular Volume 97.7 fL (80.0-100.0); Platelet Count (auto) 234 10^3/uL (140-450); Red Blood Cells 3.15 10^6/uL (4.5-5.90); Red Cell Distribution Width 14.6 % (11.8-14.3); White Blood Cell 8.4 10^3/uL (4.4-10.8)
[2018-05-21 04:01] LABS: Albumin 1.8 g/dL (3.4-5.0); BUN/Creatinine Ratio 20.9; Calcium 6.4 mg/dL (8.5-10.1)
[2018-05-21 04:03] LABS: Band Neutrophils % (manual) 0; Basophils % (manual) 0 (0.0-2.0); Blast Cells 0; Metamyelocytes % 0; Myelocytes % 0; Promyelocytes % 0; Reactive Lymphocytes 0
[2018-05-21 04:15] LABS: Bilirubin, Total 0.5 mg/dL (0.2-1.0)
[2018-05-21] MEDS: SOD CHL 0.45% 1,000 ML IV SCH ×2 (04:15→06:10)
[2018-05-21 04:16] LABS: Eosinophils % (manual) 1 (0-7); Lymphocytes % (manual) 14 (10.0-50.0); Monocytes % (manual) 8 (0-12)
[2018-05-21 04:26] LABS: Potassium 2.9 mmol/L (3.5-5.1)
[2018-05-21] MEDS ORDERED: DEXMEDETOMIDINE HCL 400 MCG in D5W 5% 96 ML IV SCH (05:00)
[2018-05-21] MEDS: InsuLIN REG 1unit/0.01ml Soln (100units/ml) SC SCH ×4 (06:12→22:08)
[2018-05-21] MEDS: ACCU-CHEK COMFORT CURVE STRIP VI SCH ×4 (06:12→22:03)
[2018-05-21] MEDS: POTASSIUM CHL 20MEQ/100ML 100 ML IV SCH ×3 (06:12→10:49)
[2018-05-21] MEDS: PANTOPRAZOLE 40 MG/10 ML VIAL IV SCH (08:55)
[2018-05-21] MEDS: SODIUM CHLOR 0.9% PF (SALINE LOCK) 10ML VIAL/SYR IV SCH ×2 (08:55→22:07)
[2018-05-21] MEDS: LINEZOLID 600MG/300ML 300 ML IV SCH ×2 (08:56→22:08)
[2018-05-21] MEDS: ENOXAPARIN SOD 80 MG/0.8ML SYRINGE SC SCH (08:56)
[2018-05-21] MEDS: LABETALOL HCL 5 MG/ML ML 20ML VIAL IV PRN ×2 (10:48→15:20)
[2018-05-21] MEDS: FLUCONAZOLE 200MG/100ML 100 ML IV SCH (10:49)
[2018-05-21] MEDS: SODIUM BICARBONATE 50ML VIAL 50 ML in SOD CHL 0.45% 1,000 ML IV SCH ×3 (11:54→21:18)
[2018-05-21] MEDS: fentaNYL Drip 2500mCg/250mlNS 250 ML IV SCH (12:22)
[2018-05-21] MEDS ORDERED: LABETALOL HCL 5 MG/ML ML 20ML VIAL IV PRN (14:00)
[2018-05-21] MEDS ORDERED: amLODIPine BESYLATE 5 MG TAB PO ONE (14:00)
[2018-05-21] MEDS: INSULIN LANTUS (GLARGINE) 1 /0.01ml (100units/ml) SC SCH (22:09)
[2018-05-22] VITALS (62 sets, daily range): BP systolic 136–179; BP diastolic 65–105
[2018-05-22] MEDS: PIPERACILLIN-TAZOB 2.25GM 50 ML IV SCH ×5 (00:01→23:58)
[2018-05-22] MEDS: HYDROcodone-ACET 10/325MG TAB PO SCH ×4 (00:02→18:35)
[2018-05-22] MEDS: LABETALOL HCL 5 MG/ML ML 20ML VIAL IV PRN (00:12)
[2018-05-22 03:56] LABS: Basophils # (auto) 0 uL; Basophils % (auto) 0.9 % (0.0-2.0); Eosinophils # (auto) 0.1 uL; Eosinophils % (auto) 2.4 % (0.0-7.0); Hematocrit 33.1 % (41.0-53.0); Hemoglobin 10.9 g/dL (13.5-17.5); Lymphocytes # (auto) 0.8 uL; Lymphocytes % (auto) 14.4 % (10.0-50.0); Mean Corpuscular Hemoglobin 31.7 pg (28.0-32.0); Mean Corpuscular Hgb Conc. 32.9 g/dL (32.0-36.0); Mean Corpuscular Volume 96.4 fL (80.0-100.0); Monocytes # (auto) 0.7 uL; Monocytes % (auto) 13.4 % (0.0-12.0); Neutrophils # (auto) 3.6 uL; Neutrophils % (auto) 68.9 % (37.0-80.0); Nucleated Red Blood Cells % 0.2 %; Platelet Count (auto) 260 10^3/uL (140-450); Red Blood Cells 3.43 10^6/uL (4.5-5.90); Red Cell Distribution Width 14.3 % (11.8-14.3); White Blood Cell 5.3 10^3/uL (4.4-10.8)
[2018-05-22 04:17] LABS: Albumin 2.1 g/dL (3.4-5.0); Calcium 7.5 mg/dL (8.5-10.1); Potassium 3.5 mmol/L (3.5-5.1)
[2018-05-22 04:19] LABS: BUN/Creatinine Ratio 18.6
[2018-05-22 04:22] LABS: Bilirubin, Total 0.6 mg/dL (0.2-1.0); Total Protein 5.7 g/dL (6.4-8.2)
[2018-05-22] MEDS: ACCU-CHEK COMFORT CURVE STRIP VI SCH ×4 (06:41→22:25)
[2018-05-22] MEDS: InsuLIN REG 1unit/0.01ml Soln (100units/ml) SC SCH ×4 (06:41→22:00)
[2018-05-22] MEDS: SODIUM BICARBONATE 50ML VIAL 50 ML in SOD CHL 0.45% 1,000 ML IV SCH ×2 (06:50→20:06)
[2018-05-22] MEDS: FLUCONAZOLE 200MG/100ML 100 ML IV SCH (10:12)
[2018-05-22] MEDS: PANTOPRAZOLE 40 MG/10 ML VIAL IV SCH (10:12)
[2018-05-22] MEDS: ENOXAPARIN SOD 80 MG/0.8ML SYRINGE SC SCH ×2 (10:13→22:25)
[2018-05-22] MEDS: DULoxetine HCL 30 MG CAP PO SCH (10:13)
[2018-05-22] MEDS: SODIUM CHLOR 0.9% PF (SALINE LOCK) 10ML VIAL/SYR IV SCH ×2 (10:13→22:25)
[2018-05-22] MEDS: amLODIPine BESYLATE 5 MG TAB PO SCH (10:13)
[2018-05-22] MEDS: POTASSIUM CHL 20MEQ/100ML 100 ML IV SCH ×2 (10:40→12:49)
[2018-05-22] MEDS: LINEZOLID 600MG/300ML 300 ML IV SCH ×2 (12:48→22:24)
[2018-05-22] MEDS: ONDANSETRON HCL 4 MG/2 ML VIAL IV PRN (14:56)
[2018-05-22] MEDS: INSULIN LANTUS (GLARGINE) 1 /0.01ml (100units/ml) SC SCH (22:00)
[2018-05-23] VITALS (10 sets, daily range): BP systolic 139–165; BP diastolic 76–97
[2018-05-23] MEDS: HYDROcodone-ACET 10/325MG TAB PO SCH ×2 (00:51→07:02)
[2018-05-23 04:00] LABS: Basophils # (auto) 0 uL; Basophils % (auto) 0.7 % (0.0-2.0); Eosinophils # (auto) 0.1 uL; Eosinophils % (auto) 1.5 % (0.0-7.0); Hematocrit 34.1 % (41.0-53.0); Hemoglobin 11.3 g/dL (13.5-17.5); Lymphocytes # (auto) 0.8 uL; Lymphocytes % (auto) 13.5 % (10.0-50.0); Mean Corpuscular Hemoglobin 31.5 pg (28.0-32.0); Mean Corpuscular Volume 95.5 fL (80.0-100.0); Monocytes # (auto) 0.5 uL; Monocytes % (auto) 9.4 % (0.0-12.0); Neutrophils # (auto) 4.2 uL; Neutrophils % (auto) 74.9 % (37.0-80.0); Nucleated Red Blood Cells % 0.1 %; Platelet Count (auto) 251 10^3/uL (140-450); Red Blood Cells 3.57 10^6/uL (4.5-5.90); Red Cell Distribution Width 14.2 % (11.8-14.3); White Blood Cell 5.6 10^3/uL (4.4-10.8)
[2018-05-23] MEDS: SODIUM BICARBONATE 50ML VIAL 50 ML in SOD CHL 0.45% 1,000 ML IV SCH ×2 (04:19→17:07)
[2018-05-23 04:20] LABS: Albumin 2.1 g/dL (3.4-5.0); Calcium 7.6 mg/dL (8.5-10.1); Potassium 3.8 mmol/L (3.5-5.1)
[2018-05-23 04:22] LABS: BUN/Creatinine Ratio 14.6
[2018-05-23 04:25] LABS: Bilirubin, Total 0.7 mg/dL (0.2-1.0); Total Protein 5.7 g/dL (6.4-8.2)
[2018-05-23] MEDS: ACCU-CHEK COMFORT CURVE STRIP VI SCH ×4 (06:49→22:22)
[2018-05-23] MEDS: PIPERACILLIN-TAZOB 2.25GM 50 ML IV SCH (06:49)
[2018-05-23] MEDS: InsuLIN REG 1unit/0.01ml Soln (100units/ml) SC SCH ×4 (06:49→22:00)
[2018-05-23] MEDS ORDERED: LOPERAMIDE 2 MG/10ml ORAL soln NG ONE (09:15)
[2018-05-23] MEDS ORDERED: LOPERAMIDE 2 MG/10ml ORAL soln NG PRN (09:15)
[2018-05-23] MEDS: SODIUM CHLOR 0.9% PF (SALINE LOCK) 10ML VIAL/SYR IV SCH ×2 (10:00→22:23)
[2018-05-23] MEDS: DULoxetine HCL 30 MG CAP PO SCH (11:02)
[2018-05-23] MEDS: amLODIPine BESYLATE 5 MG TAB PO SCH (11:05)
[2018-05-23] MEDS: FLUCONAZOLE 200MG/100ML 100 ML IV SCH (11:09)
[2018-05-23] MEDS: ENOXAPARIN SOD 80 MG/0.8ML SYRINGE SC SCH ×2 (11:10→22:20)
[2018-05-23] MEDS: PANTOPRAZOLE 40 MG/10 ML VIAL IV SCH (11:10)
[2018-05-23] MEDS: HYDROcodone-ACET 10/325MG TAB PO PRN (20:08)
[2018-05-23] MEDS: ONDANSETRON HCL 4 MG/2 ML VIAL IV PRN (20:46)
[2018-05-23] MEDS: INSULIN LANTUS (GLARGINE) 1 /0.01ml (100units/ml) SC SCH (22:00)
[2018-05-24] MEDS: SODIUM BICARBONATE 50ML VIAL 50 ML in SOD CHL 0.45% 1,000 ML IV SCH ×3 (00:57→09:30)
[2018-05-24 05:00] VITALS: BP 150/100
[2018-05-24] MEDS: ACCU-CHEK COMFORT CURVE STRIP VI SCH ×4 (06:13→22:01)
[2018-05-24] MEDS: InsuLIN REG 1unit/0.01ml Soln (100units/ml) SC SCH ×4 (06:25→22:00)
[2018-05-24] MEDS ORDERED: NITROGLYCERIN 0.4 MG SL TAB SL PRN (08:15)
[2018-05-24] MEDS ORDERED: DEXTROSE (50%) 50ML SYRG IV PRN (08:15)
[2018-05-24 09:00] VITALS: BP 141/84
[2018-05-24] MEDS: FLUCONAZOLE 200MG/100ML 100 ML IV SCH (09:04)
[2018-05-24] MEDS: PANTOPRAZOLE 40 MG/10 ML VIAL IV SCH (09:05)
[2018-05-24] MEDS: SODIUM CHLOR 0.9% PF (SALINE LOCK) 10ML VIAL/SYR IV SCH ×2 (09:05→21:43)
[2018-05-24] MEDS: amLODIPine BESYLATE 5 MG TAB PO SCH (09:05)
[2018-05-24] MEDS: ENOXAPARIN SOD 80 MG/0.8ML SYRINGE SC SCH ×2 (09:05→21:43)
[2018-05-24] MEDS: DULoxetine HCL 30 MG CAP PO SCH (09:05)
[2018-05-24 13:00] VITALS: BP 141/105
[2018-05-24] MEDS: HYDROcodone-ACET 10/325MG TAB PO PRN ×2 (13:21→19:39)
[2018-05-24 17:00] VITALS: BP 168/94
[2018-05-24] MEDS: ONDANSETRON HCL 4 MG/2 ML VIAL IV PRN (20:28)
[2018-05-24 22:00] VITALS: BP 155/87
[2018-05-24] MEDS: INSULIN LANTUS (GLARGINE) 1 /0.01ml (100units/ml) SC SCH (22:00)
[2018-05-24] MEDS: ACETAMINOPHEN 325 MG TAB PO PRN (22:37)
[2018-05-25 05:35] VITALS: BP 160/80
[2018-05-25] MEDS: LABETALOL HCL 5 MG/ML ML 20ML VIAL IV PRN (05:51)
[2018-05-25] MEDS: ACCU-CHEK COMFORT CURVE STRIP VI SCH ×4 (07:00→21:44)
[2018-05-25] MEDS: InsuLIN REG 1unit/0.01ml Soln (100units/ml) SC SCH ×4 (07:00→21:45)
[2018-05-25 09:31] VITALS: BP 120/76
[2018-05-25] MEDS: FLUCONAZOLE 200MG/100ML 100 ML IV SCH (09:59)
[2018-05-25] MEDS: PANTOPRAZOLE 40 MG/10 ML VIAL IV SCH (09:59)
[2018-05-25] MEDS: SODIUM CHLOR 0.9% PF (SALINE LOCK) 10ML VIAL/SYR IV SCH ×2 (10:00→21:44)
[2018-05-25] MEDS: amLODIPine BESYLATE 5 MG TAB PO SCH (10:00)
[2018-05-25] MEDS: DULoxetine HCL 30 MG CAP PO SCH (10:00)
[2018-05-25] MEDS: ENOXAPARIN SOD 80 MG/0.8ML SYRINGE SC SCH ×2 (10:01→21:44)
[2018-05-25] MEDS: ACETAMINOPHEN 325 MG TAB PO PRN ×2 (11:59→20:03)
[2018-05-25 12:17] VITALS: BP 132/75
[2018-05-25] MEDS: ONDANSETRON HCL 4 MG/2 ML VIAL IV PRN ×2 (14:18→18:50)
[2018-05-25 17:46] VITALS: BP 159/99
[2018-05-25] MEDS: INSULIN LANTUS (GLARGINE) 1 /0.01ml (100units/ml) SC SCH (21:44)
[2018-05-25 22:00] VITALS: BP 147/88
[2018-05-26] MEDS ORDERED: LORazepam 2MG/ML-1ML VIAL IV ONE (01:00)
[2018-05-26] MEDS: ONDANSETRON HCL 4 MG/2 ML VIAL IV PRN ×2 (01:37→12:12)
[2018-05-26 05:38] VITALS: BP 140/80
[2018-05-26] MEDS: InsuLIN REG 1unit/0.01ml Soln (100units/ml) SC SCH ×4 (06:04→22:26)
[2018-05-26] MEDS: ACCU-CHEK COMFORT CURVE STRIP VI SCH ×4 (06:04→22:00)
[2018-05-26 09:00] VITALS: BP 148/88
[2018-05-26] MEDS ORDERED: CIPROFLOXACIN 0.3%OPTH(EYE) SOL 5ML RIGHTEYE SCH (10:00)
[2018-05-26] MEDS: DULoxetine HCL 30 MG CAP PO SCH (10:00)
[2018-05-26 10:46] LABS: Basophils # (auto) 0.1 uL; Basophils % (auto) 0.4 % (0.0-2.0); Eosinophils # (auto) 0 uL; Hematocrit 37.4 % (41.0-53.0); Hemoglobin 12.2 g/dL (13.5-17.5); Lymphocytes % (auto) 3.9 % (10.0-50.0); Mean Corpuscular Hemoglobin 30.9 pg (28.0-32.0); Mean Corpuscular Hgb Conc. 32.7 g/dL (32.0-36.0); Mean Corpuscular Volume 94.7 fL (80.0-100.0); Monocytes # (auto) 0.8 uL; Monocytes % (auto) 3.3 % (0.0-12.0); Neutrophils # (auto) 22.9 uL; Neutrophils % (auto) 92.4 % (37.0-80.0); Platelet Count (auto) 262 10^3/uL (140-450); Red Blood Cells 3.95 10^6/uL (4.5-5.90); Red Cell Distribution Width 14.8 % (11.8-14.3); White Blood Cell 24.8 10^3/uL (4.4-10.8)
[2018-05-26 10:57] LABS: BUN/Creatinine Ratio 9.6; Calcium 7.9 mg/dL (8.5-10.1)
[2018-05-26] MEDS: FLUCONAZOLE 200MG/100ML 100 ML IV SCH (11:15)
[2018-05-26] MEDS: ENOXAPARIN SOD 80 MG/0.8ML SYRINGE SC SCH ×2 (11:15→22:26)
[2018-05-26] MEDS: amLODIPine BESYLATE 5 MG TAB PO SCH (11:17)
[2018-05-26] MEDS: SODIUM CHLOR 0.9% PF (SALINE LOCK) 10ML VIAL/SYR IV SCH ×2 (11:17→22:26)
[2018-05-26] MEDS: PANTOPRAZOLE 40 MG/10 ML VIAL IV SCH (11:18)
[2018-05-26] MEDS: LABETALOL HCL 5 MG/ML ML 20ML VIAL IV PRN ×2 (12:25→19:23)
[2018-05-26 12:34] VITALS: BP 163/86
[2018-05-26] MEDS: NEOMYCIN-POLYM-GRAM OPTH(EYE) SOL 10ML RIGHTEYE SCH ×4 (14:00→22:26)
[2018-05-26] MEDS: ACETAMINOPHEN 325 MG TAB PO PRN (14:48)
[2018-05-26 17:00] VITALS: BP 162/86
[2018-05-26 22:00] VITALS: BP 146/77
[2018-05-26] MEDS: INSULIN LANTUS (GLARGINE) 1 /0.01ml (100units/ml) SC SCH (22:00)
[2018-05-26] MEDS: MEROPENEM 1gm/20ml IVPUSH 20 ML IV SCH (22:26)
[2018-05-27] MEDS: HYDROcodone-ACET 10/325MG TAB PO PRN ×4 (01:12→22:11)
[2018-05-27] MEDS: NEOMYCIN-POLYM-GRAM OPTH(EYE) SOL 10ML RIGHTEYE SCH ×6 (02:00→22:11)
[2018-05-27 05:00] VITALS: BP 167/91
[2018-05-27] MEDS: MEROPENEM 1gm/20ml IVPUSH 20 ML IV SCH ×3 (06:03→22:11)
[2018-05-27] MEDS: ACCU-CHEK COMFORT CURVE STRIP VI SCH ×4 (06:32→22:12)
[2018-05-27] MEDS: InsuLIN REG 1unit/0.01ml Soln (100units/ml) SC SCH ×4 (06:32→22:00)
[2018-05-27 07:28] LABS: Basophils # (auto) 0.1 uL; Basophils % (auto) 0.3 % (0.0-2.0); Eosinophils # (auto) 0 uL; Eosinophils % (auto) 0.1 % (0.0-7.0); Hematocrit 37.4 % (41.0-53.0); Hemoglobin 12.1 g/dL (13.5-17.5); Lymphocytes # (auto) 0.9 uL; Lymphocytes % (auto) 5.1 % (10.0-50.0); Mean Corpuscular Hemoglobin 31.2 pg (28.0-32.0); Mean Corpuscular Hgb Conc. 32.4 g/dL (32.0-36.0); Mean Corpuscular Volume 96.1 fL (80.0-100.0); Monocytes # (auto) 0.8 uL; Monocytes % (auto) 4.7 % (0.0-12.0); Neutrophils # (auto) 15.8 uL; Neutrophils % (auto) 89.8 % (37.0-80.0); Nucleated Red Blood Cells % 0.1 %; Platelet Count (auto) 231 10^3/uL (140-450); Red Cell Distribution Width 15.2 % (11.8-14.3); White Blood Cell 17.5 10^3/uL (4.4-10.8)
[2018-05-27 07:58] LABS: BUN/Creatinine Ratio 9.4; Potassium 3.1 mmol/L (3.5-5.1)
[2018-05-27] MEDS: ONDANSETRON HCL 4 MG/2 ML VIAL IV PRN ×3 (09:46→15:53)
[2018-05-27] MEDS: FLUCONAZOLE 200MG/100ML 100 ML IV SCH (09:52)
[2018-05-27] MEDS: ENOXAPARIN SOD 80 MG/0.8ML SYRINGE SC SCH ×2 (09:52→22:12)
[2018-05-27] MEDS: PANTOPRAZOLE 40 MG/10 ML VIAL IV SCH (09:53)
[2018-05-27] MEDS: DULoxetine HCL 30 MG CAP PO SCH (09:53)
[2018-05-27] MEDS: amLODIPine BESYLATE 5 MG TAB PO SCH (09:54)
[2018-05-27] MEDS: SODIUM CHLOR 0.9% PF (SALINE LOCK) 10ML VIAL/SYR IV SCH ×2 (09:54→22:11)
[2018-05-27] MEDS ORDERED: ONDANSETRON HCL 4 MG/2 ML VIAL IV ONE (12:00)
[2018-05-27] MEDS ORDERED: VANCOMYCIN PER PHARMACY 0 MG IV SCH (12:30)
[2018-05-27] MEDS: VANCOMYCIN 1GM/250ML 250 ML IV SCH (15:44)
[2018-05-27 16:48] VITALS: BP 156/91
[2018-05-27] MEDS: Glucerna Carbsteady SHAKE Vanilla 8oz PO SCH (18:00)
[2018-05-27 22:00] VITALS: BP 162/83
[2018-05-27] MEDS: INSULIN LANTUS (GLARGINE) 1 /0.01ml (100units/ml) SC SCH (22:11)
[2018-05-28] MEDS: VANCOMYCIN 1GM/250ML 250 ML IV SCH ×2 (03:00→15:04)
[2018-05-28 05:00] VITALS: BP 162/75
[2018-05-28] MEDS: NEOMYCIN-POLYM-GRAM OPTH(EYE) SOL 10ML RIGHTEYE SCH ×6 (05:21→21:30)
[2018-05-28 06:10] LABS: Basophils # (auto) 0 uL; Basophils % (auto) 0.2 % (0.0-2.0); Eosinophils # (auto) 0 uL; Eosinophils % (auto) 0.2 % (0.0-7.0); Hemoglobin 11.5 g/dL (13.5-17.5); Lymphocytes % (auto) 6.6 % (10.0-50.0); Mean Corpuscular Hemoglobin 31.8 pg (28.0-32.0); Mean Corpuscular Hgb Conc. 32.8 g/dL (32.0-36.0); Mean Corpuscular Volume 96.8 fL (80.0-100.0); Monocytes # (auto) 0.8 uL; Monocytes % (auto) 5.2 % (0.0-12.0); Neutrophils # (auto) 13.2 uL; Neutrophils % (auto) 87.8 % (37.0-80.0); Platelet Count (auto) 205 10^3/uL (140-450); Red Blood Cells 3.61 10^6/uL (4.5-5.90); Red Cell Distribution Width 15.2 % (11.8-14.3)
[2018-05-28] MEDS: MEROPENEM 1gm/20ml IVPUSH 20 ML IV SCH ×3 (06:18→21:30)
[2018-05-28] MEDS: ACCU-CHEK COMFORT CURVE STRIP VI SCH ×4 (06:19→21:31)
[2018-05-28] MEDS: InsuLIN REG 1unit/0.01ml Soln (100units/ml) SC SCH ×4 (06:19→21:31)
[2018-05-28 06:30] LABS: Calcium 7.9 mg/dL (8.5-10.1); Potassium 3.1 mmol/L (3.5-5.1)
[2018-05-28 06:39] LABS: BUN/Creatinine Ratio 10.1
[2018-05-28] MEDS: Glucerna Carbsteady SHAKE Vanilla 8oz PO SCH ×2 (08:00→17:27)
[2018-05-28 08:28] LABS: Albumin 2.1 g/dL (3.4-5.0)
[2018-05-28 08:40] LABS: Bilirubin, Total 0.5 mg/dL (0.2-1.0)
[2018-05-28] MEDS: ONDANSETRON HCL 4 MG/2 ML VIAL IV PRN ×2 (08:40→12:29)
[2018-05-28] MEDS: FLUCONAZOLE 200MG/100ML 100 ML IV SCH (09:34)
[2018-05-28] MEDS: DULoxetine HCL 30 MG CAP PO SCH (09:34)
[2018-05-28] MEDS: SODIUM CHLOR 0.9% PF (SALINE LOCK) 10ML VIAL/SYR IV SCH ×2 (09:34→21:30)
[2018-05-28] MEDS: PANTOPRAZOLE 40 MG/10 ML VIAL IV SCH (09:34)
[2018-05-28] MEDS: amLODIPine BESYLATE 5 MG TAB PO SCH (09:34)
[2018-05-28] MEDS: ENOXAPARIN SOD 80 MG/0.8ML SYRINGE SC SCH ×2 (09:34→21:31)
[2018-05-28] MEDS ORDERED: POTASSIUM EFFERVESENT TAB 25 MEQ PO ONE (10:00)
[2018-05-28] MEDS ORDERED: FUROSEMIDE 40 MG/4 ML VIAL IV ONE (14:15)
[2018-05-28] MEDS: HYDROcodone-ACET 10/325MG TAB PO PRN (21:31)
[2018-05-28] MEDS: INSULIN LANTUS (GLARGINE) 1 /0.01ml (100units/ml) SC SCH (21:31)
[2018-05-28 22:00] VITALS: BP 176/88
[2018-05-28] MEDS: LABETALOL HCL 5 MG/ML ML 20ML VIAL IV PRN (22:32)
[2018-05-29] MEDS: NEOMYCIN-POLYM-GRAM OPTH(EYE) SOL 10ML RIGHTEYE SCH ×6 (01:27→22:26)
[2018-05-29 01:54] VITALS: BP 176/88
[2018-05-29] MEDS: VANCOMYCIN 1GM/250ML 250 ML IV SCH (02:44)
[2018-05-29 03:11] LABS: Basophils # (auto) 0.1 uL; Basophils % (auto) 0.3 % (0.0-2.0); Eosinophils # (auto) 0 uL; Hematocrit 38.2 % (41.0-53.0); Hemoglobin 12.4 g/dL (13.5-17.5); Lymphocytes # (auto) 0.8 uL; Lymphocytes % (auto) 4.1 % (10.0-50.0); Mean Corpuscular Hemoglobin 30.8 pg (28.0-32.0); Mean Corpuscular Hgb Conc. 32.3 g/dL (32.0-36.0); Mean Corpuscular Volume 95.4 fL (80.0-100.0); Monocytes # (auto) 1.1 uL; Monocytes % (auto) 5.5 % (0.0-12.0); Neutrophils # (auto) 17.9 uL; Neutrophils % (auto) 90.1 % (37.0-80.0); Platelet Count (auto) 229 10^3/uL (140-450); Red Blood Cells 4.01 10^6/uL (4.5-5.90); Red Cell Distribution Width 15.1 % (11.8-14.3); White Blood Cell 19.9 10^3/uL (4.4-10.8)
[2018-05-29 03:25] LABS: Albumin 2.3 g/dL (3.4-5.0); Calcium 7.7 mg/dL (8.5-10.1); Potassium 3.3 mmol/L (3.5-5.1)
[2018-05-29 03:29] LABS: BUN/Creatinine Ratio 11.3; Bilirubin, Total 0.9 mg/dL (0.2-1.0); Total Protein 5.9 g/dL (6.4-8.2)
[2018-05-29 05:00] VITALS: BP 159/91
[2018-05-29] MEDS: MEROPENEM 1gm/20ml IVPUSH 20 ML IV SCH ×3 (05:47→22:26)
[2018-05-29] MEDS: InsuLIN REG 1unit/0.01ml Soln (100units/ml) SC SCH ×4 (06:37→22:00)
[2018-05-29] MEDS: ACCU-CHEK COMFORT CURVE STRIP VI SCH ×4 (06:37→22:37)
[2018-05-29] MEDS: Glucerna Carbsteady SHAKE Vanilla 8oz PO SCH ×2 (07:55→17:18)
[2018-05-29] MEDS ORDERED: POTASSIUM CHL 20 Meq TABLET PO ONE (10:15)
[2018-05-29] MEDS: FLUCONAZOLE 200MG/100ML 100 ML IV SCH (10:44)
[2018-05-29] MEDS: DULoxetine HCL 30 MG CAP PO SCH (10:44)
[2018-05-29] MEDS: ENOXAPARIN SOD 80 MG/0.8ML SYRINGE SC SCH ×2 (10:44→22:26)
[2018-05-29] MEDS: amLODIPine BESYLATE 5 MG TAB PO SCH (10:45)
[2018-05-29] MEDS: PANTOPRAZOLE 40 MG/10 ML VIAL IV SCH (10:46)
[2018-05-29] MEDS: SODIUM CHLOR 0.9% PF (SALINE LOCK) 10ML VIAL/SYR IV SCH ×2 (10:47→22:26)
[2018-05-29] MEDS: ONDANSETRON HCL 4 MG/2 ML VIAL IV PRN ×2 (12:28→16:36)
[2018-05-29 18:08] VITALS: BP 144/88
[2018-05-29] MEDS: INSULIN LANTUS (GLARGINE) 1 /0.01ml (100units/ml) SC SCH (22:00)
[2018-05-30] MEDS ORDERED: VANCOMYCIN 1GM/250ML 250 ML IV SCH (10:00)
== END 2018-05-30 01:12 | disposition short-term general hospital (02) | DRG 870 ==
LOC: EDBD 21:58 → ER 21:58 → OVERFLOW 21:59 → ICU WEST 05-07 09:51 → TELE-CENTR 05-16 15:07 → ICU WEST 05-17 20:15 → EAST 05-23 15:10 → TELE-EAST 05-23 22:34
PROVIDERS: ADMIT Nurse Practitioner; ATTEND Family Medicine
PROC: 5A1955Z Respiratory Ventilation, Greater than 96 Consecutive Hours (ICD-10-PCS; principal; 2018-05-07)
PROC: 0BH17EZ Insertion of Endotracheal Airway into Trachea, Via Natural or Artificial Opening (ICD-10-PCS; 2018-05-07)
PROC: 5A09357 Assistance with Respiratory Ventilation, Less than 24 Consecutive Hours, Continuous Positive Airway Pressure (ICD-10-PCS; 2018-05-17)
PROC: 02HV33Z Insertion of Infusion Device into Superior Vena Cava, Percutaneous Approach (ICD-10-PCS; 2018-05-18)
DX: A41.9 Sepsis, unspecified organism (principal); R65.21 Severe sepsis with septic shock; J96.01 Acute respiratory failure with hypoxia; G92 Toxic encephalopathy; N17.0 Acute kidney failure with tubular necrosis; J69.0 Pneumonitis due to inhalation of food and vomit; J15.6 Pneumonia due to other Gram-negative bacteria; E87.0 Hyperosmolality and hypernatremia; I13.0 Hypertensive heart and chronic kidney disease with heart failure and stage 1 through stage 4 chronic kidney disease, or unspecified chronic kidney disease; E87.4 Mixed disorder of acid-base balance; N17.9 Acute kidney failure, unspecified; N39.0 Urinary tract infection, site not specified; L03.114 Cellulitis of left upper limb; T40.601A Poisoning by unspecified narcotics, accidental (unintentional), initial encounter; I50.9 Heart failure, unspecified; E11.22 Type 2 diabetes mellitus with diabetic chronic kidney disease; M48.00 Spinal stenosis, site unspecified; N18.9 Chronic kidney disease, unspecified; G89.4 Chronic pain syndrome; D64.9 Anemia, unspecified; L89.159 Pressure ulcer of sacral region, unspecified stage; L89.109 Pressure ulcer of unspecified part of back, unspecified stage; K72.90 Hepatic failure, unspecified without coma; E11.21 Type 2 diabetes mellitus with diabetic nephropathy; E86.0 Dehydration; E87.6 Hypokalemia; Z86.73 Personal history of transient ischemic attack (TIA), and cerebral infarction without residual deficits; Y92.89 Other specified places as the place of occurrence of the external cause
CPT/HCPCS: 36415; 36569; 36600; 70450; 71045; 71250; 73130; 74176; 76604; 76775; 80048; 80053; 80202; 80307; 80320; 80329; 81001; 82140; 82150; 82270; 82550; 82570; 82805; 82962; 83036; 83605; 83690; 83735; 83880; 84100; 84132; 84156; 84300; 84484; 84550; 85007; 85025; 85027; 85379; 85610; 85652; 85730; 87040; 87070; 87077; 87081; 87086; 87186; 87205; 87493; 92610; 93005; 93306; 93970; 93971; 94002; 94003; 94640; 94660; 96365; 96366; 96367; 96375; 96376; 96379; 97110; 97116; 97163; 97530; 99291; A6257; C9113; G0378; J0330; J0696; J1450; J1815; J1956; J2250; J2405; J2543; J2704; J3480; J3490; J7060

== ENCOUNTER 2018-08-04 15:46 | Emergency (ER) | payer OTHER ==
[~2018-08-04] VITALS: Ht 182.9 cm; Wt 72.6 kg
[~2018-08-04 15:46] MED LIST: AMLO5TAB13 PO; DULO60CA PO; GABA100C9 PO; HYDR-4683 PO; INSUINJ2 SC; LISI10TA6 PO; OMEP20TA PO; PRAV20TA3 GT
[2018-08-04 16:55] LABS: Basophils # (auto) 0.1 uL; Basophils % (auto) 0.8 % (0.0-2.0); Eosinophils # (auto) 0.1 uL; Eosinophils % (auto) 0.5 % (0.0-7.0); Hemoglobin 12.7 g/dL (13.5-17.5); Lymphocytes # (auto) 1.8 uL; Mean Corpuscular Hemoglobin 31.5 pg (28.0-32.0); Mean Corpuscular Hgb Conc. 32.7 g/dL (32.0-36.0); Mean Corpuscular Volume 96.6 fL (80.0-100.0); Monocytes # (auto) 0.6 uL; Monocytes % (auto) 4.5 % (0.0-12.0); Neutrophils # (auto) 11.3 uL; Neutrophils % (auto) 81.2 % (37.0-80.0); Nucleated Red Blood Cells % 0.1 %; Platelet Count (auto) 322 10^3/uL (140-450); Red Blood Cells 4.04 10^6/uL (4.5-5.90); White Blood Cell 13.9 10^3/uL (4.4-10.8)
[2018-08-04 17:56] VITALS: BP 127/73
[2018-08-04 18:07] LABS: Albumin 2.6 g/dL (3.4-5.0); Calcium 8.8 mg/dL (8.5-10.1); Potassium 4.5 mmol/L (3.5-5.1)
[2018-08-04 18:08] LABS: Bilirubin, Total 0.3 mg/dL (0.2-1.0); Total Protein 7.5 g/dL (6.4-8.2)
[2018-08-04] MEDS ORDERED: SODIUM CHLORIDE 0.9% 1,000 ML IV ONE (18:30)
== END 2018-08-04 19:10 | disposition home or self-care (01) ==
LOC: EDBD 15:46 → ER 15:46
DX: K94.23 Gastrostomy malfunction (principal); I12.9 Hypertensive chronic kidney disease with stage 1 through stage 4 chronic kidney disease, or unspecified chronic kidney disease; E11.22 Type 2 diabetes mellitus with diabetic chronic kidney disease; N18.9 Chronic kidney disease, unspecified; Z88.6 Allergy status to analgesic agent
CPT/HCPCS: 36415; 71045; 74018; 80053; 85025